=== PATIENT | female | born 1970 | race Caucasian/White ===

== ENCOUNTER → 2017-07-18 20:18 | Outpatient (CLI) | payer BC ==
[2013-12-06 05:46] VITALS: BMI 24.8
[~2017-07-18 20:18] MED LIST: IBUPROFEN800 MG PO; LORTAB 5/500 TA1 TA2 PO
== END | disposition home or self-care (01) ==
LOC: D.MAMMO 05-21 09:00
DX: Z12.31 Encounter for screening mammogram for malignant neoplasm of breast (principal)

== ENCOUNTER → 2018-04-27 14:35 | Outpatient (CLI) | payer BC ==
[2013-12-06 05:46] VITALS: BMI 24.8
--- NOTE | ~2018-04-27 | ST ---
PATIENT:YOANNA SILVA MEDICAL RECORD: [id number] SEX: F LOCATION:[facility] ORDER #: ADMISSION DATE: 04/27/18 AGE OF PATIENT: 48 REFERRING PHYSICIAN: INTERPRETING PHYSICIAN: CORINNA GARCÍA MD TREADMILL STRESS TEST DATE OF SERVICE: 04/27/2018 REFERRING PHYSICIAN: Thea Farrell MD DESCRIPTION: Baseline electrocardiogram is normal. The patient exercised for 7 minutes and 37 seconds via David protocol. The maximum heart rate was 100 beats per minute which was greater than 85% of maximum predicted. No electrocardiographic changes of ischemia. No symptoms of ischemia. Normal blood pressure response to exercise. No arrhythmias noted. Good exercise tolerance for age. CORINNA GARCÍA MD CC: THEA FARRELL MD [id number] DICTATION DATE: 04/28/18 YARN MAN: OLU 04/30/18 1309 DEP CLI 04/27/18 [facility] [address] [place] [address]
== END | disposition home or self-care (01) ==
LOC: D.HCCARDIO 14:35
DX: R07.9 Chest pain, unspecified (principal)

== ENCOUNTER → 2018-06-09 16:58 | Outpatient (CLI) | payer BC ==
[2013-12-06 05:46] VITALS: BMI 24.8
== END | disposition home or self-care (01) ==
LOC: D.MAMMO 14:45
DX: Z12.31 Encounter for screening mammogram for malignant neoplasm of breast (principal)